=== PATIENT | male | born 1985 | race Caucasian/White ===

== ENCOUNTER 2024-08-20 16:59 | Inpatient (IN) | payer OTHER, SELFPAY ==
[2024-08-20 12:59] VITALS: BP 139/92
[2024-08-20] MEDS: TYLENOL 1000 MG PO (13:29)
[2024-08-20] MEDS: TORADOL 30 MG IV (13:30)
--- NOTE | 2024-08-20 13:41 | ED.GENMED ---
History of Present Illness
General
Chief Complaint: Swelling
Source: patient
Exam Limitations: none
Time Seen by Provider: 08/20/24 13:08
Nursing documentation reviewed up to this point in time: agreed with
History of Present Illness
History of Present Illness:
39-year-old male past medical history of diabetes previous drug presenting to the emergency department today with concerns of left-sided neck swelling over the past 4 days. Initially it seemed to have some swelling to the right side of the neck was
given amoxicillin and has been taking this twice daily over the past 3 days but has had no improvement now the swelling to the left side claims it is some trouble hearing out of the left ear. He has no swelling mainly to the neck no trouble
swallowing or breathing thinks he may have had a fever but did not take his temperature. Denies having similar symptoms in the past no trauma. No numbness weakness nausea vomiting.
Review of Systems
Review of Systems
Allergies reviewed?: Yes
All Other Systems: ROS reviewed and negative except as documented in HPI and ROS
Phy Exam
Physical Exam
Physical Exam:
GENERAL: Alert , in no apparent distress
EYE: pupils equal and reactive
NECK: Left lateral neck redness swelling tenderness palpation just below the ear spanning roughly 6 to 7 cm in width. No tenderness to the midline of the posterior neck no involvement of the trachea or midline of the anterior neck Supple, no
significant adenopathy.
ENT: o/p clr, mmm.
CARDIAC: Regular rate and rhythm .
LUNGS: Clear breath sounds bilaterally, no acute respiratory distress, no wheezes/rales/rhonchi
ABDOMEN: Soft, without focal tenderness, no r/g, no cvat
NEUROLOGICAL: Alert and oriented, no focal neuro deficits
SKIN: Warm and dry, skin intact.
MUSCULOSKELETAL: No edema, well perfused.
PSYCH: Normal and appropriate interaction.
Course
Orders/Labs/Results
Orders:
Orders
08/20/24 13:16
CT Neck With Iv Contrast Urgent
Comment:
Reason For Exam: left neck swelling pain x3 days, febrile
Acetaminophen [Tylenol] 1,000 mg PO NOW STA
Ketorolac [Toradol] 30 mg IV NOW STA
08/20/24 13:30
CBC/With Diff [Complete Blood Count/With Diff] Urgent
CMP [Comprehensive Metabolic Panel] Urgent
Lactic Acid Urgent
Abnormal Lab Results
08/20/24
13:30
RBC 4.31 L 10^6/uL
(4.70-6.10)
Hgb 12.8 L g/dL
(13.0-18.0)
Hct 35.9 L %
(39.0-52.0)
Carbon Dioxide 33 H mmol/L
(22-30)
BUN 7 L mg/dl
(9-20)
Creatinine 0.6 L mg/dL
(0.7-1.3)
Glucose 168 H mg/dl
(70-99)
AST 73 H U/L
(17-59)
ALT 72 H U/L
(0-50)
08/20/24 13:30
08/20/24 13:30
Vital Signs
Initial and Last Documented VS:
Initial Vital Signs
Temp Pulse Resp BP Pulse Ox
100.6 F H 67 18 139/92 100
08/20/24 12:59 08/20/24 12:59 08/20/24 12:59 08/20/24 12:59 08/20/24 12:59
Last Documented Vital Signs
Temp Pulse Resp BP Pulse Ox
100.6 F H 85 18 138/93 100
08/20/24 12:59 08/20/24 14:41 08/20/24 14:41 08/20/24 14:41 08/20/24 14:41
MDM/Problems Addressed
MDM/Problems Addressed:
39-year-old male presenting to the emergency department today with concerns of swelling to the left side of the neck over the past 4 days there is initially some swelling on the right side he started on amoxicillin 3 days ago he has been taking this
as prescribed but has had no improvement. Upon arrival here he is febrile significantly tender to the left lateral neck. Contrast CT scan was ordered for further assessment with concerns of potential deep space infection. CBC is showing likely
cellulitis no signs of focal consolidation. Patient has been on antibiotics for a few days without any improvement plan to admit for IV antibiotics for further treatment. No airway compromise while here able to speak with normal phonation.
Initial fever seems to be improving while here. Patient additionally with incidental finding of thyroid nodule that he can have evaluated as an outpatient.
*Critical Care Note
Total Time (30-74mins, 75-104mins- exclusive of procedures): Not Applicable
ED Attending Note
-
Portions of this chart may have been created with voice recognition software.� Occasional wrong word or��sound alike� substitutions may have occurred due to the inherent limitations of voice recognition software.
Discharge Plan
Departure
Patient Disposition: Admit
Date of Disposition: 08/20/24
Time of Disposition: 16:09
Admit to: Med/Surg
Admit to doctor: Aroldo
Presentation/result/management discussed w/ accepting MD/DO: Hospitalist
Patient with high blood pressure during this ER visit?: No
Condition: Good
Covid-19: Not Applicable
Discharge Problem:
Cellulitis of neck
Referrals:
[facility] [Family Provider] -
Interventions
Interventions:
*Risk Screen - Suicide Last Done: 08/20/24 12:59
*General Assessment Last Done: 08/20/24 12:59
*Neglect/Abuse Screening Last Done: 08/20/24 12:59
ED- Cardiac Assessment Last Done: 08/20/24 14:10
ED- Pulmonary Assessment Last Done: 08/20/24 14:10
ED-Skin Assessment Last Done: 08/20/24 14:10
Discharge Date and Time
Print Language: OMANI
[2024-08-20 14:14] LABS: % Basophils 0.7 % (0-2); % Eosinophils 1.4 % (0-6); % Immature Granulocytes 0.3 % (0-0.5); % Lymphocytes 27.1 % (20.5-51.1); % Neutrophils 62.5 % (42.2-75.2); Absolute Basophils 0.1 10^3/uL (0-0.2); Absolute Eosinophils 0.1 10^3/uL (0-0.7); Absolute Monocytes 0.6 10^3/uL (0.1-0.6); Absolute Neutrophils 4.5 10^3/uL (1.4-6.5); Hematocrit 35.9 % (39.0-52.0); Hemoglobin 12.8 g/dL (13.0-18.0); Mean Corp Hgb Conc. 35.7 g/dL (33.0-37.0); Mean Corpuscular Hgb 29.7 pg (27.0-31.0); Mean Corpuscular Volume 83.3 fL (80.0-94.0); Mean Platelet Volume 9.8 fL (7.4-10.4); Nucleated Red Blood Cells % 0 % (-); Platelet Count 260 10^3/uL (130-400); Red Blood Cell Count 4.31 10^6/uL (4.70-6.10); Red Cell Dist. Width 12.2 % (11.5-14.5); White Blood Cell Count 7.2 10^3/uL (4.8-10.8)
[2024-08-20 14:31] LABS: Lactic Acid 1.1 mmol/L (0.7-2.0)
[2024-08-20 14:33] LABS: ALT (SGPT) 72 U/L (0-50); AST (SGOT) 73 U/L (17-59); Albumin 4.5 g/dl (3.5-5.0); Alkaline Phosphatase 57 U/L (38-126); Blood Urea Nitrogen 7 mg/dl (9-20); Calcium 9.7 mg/dl (8.4-10.2); Carbon Dioxide 33 mmol/L (22-30); Chloride 99 mmol/L (98-107); Glucose 168 mg/dl (70-99); Potassium 4.8 mmol/L (3.5-5.1); Sodium 140 mmol/L (135-145); Total Bilirubin 0.7 mg/dl (0.2-1.3); Total Protein 7.3 g/dl (6.3-8.2); eGFR > 60.00
[2024-08-20 14:41] VITALS: BP 138/93
--- NOTE | 2024-08-20 16:45 | HPS.HSE ---
Family Physician
-
Family Physician: Facility [facility]
Chief Complaint
-
neck pain
History of Present Illness
39-year-old male presenting from [facility] past medical history of diabetes, prior IV drug use, psychiatric history, presenting with left-sided neck swelling for the past 4 days presenting to the emergency room with left-sided neck swelling for the
past 4 days.
He initially had swelling of his right neck 2 weeks ago associated with hearing impairment in the right ear and bleeding from the right ear and was treated with amoxicillin with improvement. He states that the swelling of his right neck has
improved he still has some muffled hearing on that side.
4 days ago he developed left neck swelling associated muffled hearing in his left ear. He has pain when he swallows. Denies any trouble breathing. He thinks he may have had a fever.
Used IV drugs many years ago. He used marijuana 2 months ago before he was imprisoned. Denies smoking or alcohol use.
Medical History
Past Medical History
Past Medical History: Reports Other (diabetes, prior IV drug use, psychiatric history,)
Past Surgical History: Reports None
Social History
Tobacco: Non-smoker
Alcohol: None
Drug: Marijuana
Family History
Family History: Not pertinent
Allergies / Home Medications
Allergies reflects when Allergies were last updated in [facility].
Home Medications with original date entered in [facility]
Allergy/Medication List:
Allergies
Allergy/AdvReac Type Severity Reaction Status Date / Time
No Known Allergies Allergy Unverified 08/20/24 12:59
Home Medications
amoxicillin 500 mg capsule 500 mg PO TID 08/20/24
aspirin 81 mg tablet,delayed release 81 mg PO DAILY 08/20/24
buprenorphine HCl 8 mg sublingual tablet 16 mg sublingual DAILY 08/20/24
buspirone 10 mg tablet 10 mg PO TID 08/20/24
hydroxyzine pamoate 50 mg capsule 50 mg PO HS 10/08/24
insulin glargine 100 unit/mL subcutaneous solution (Lantus U-100 Insulin) 14 unit SC DAILY@2100 08/20/24
metformin 500 mg tablet 500 mg PO BID@0600,1700 08/20/24
quetiapine 50 mg tablet 50 mg PO BID 08/20/24
Review of Systems
-
History Source: Patient
A 12 point ROS was completed and negative except as noted: Yes
Constitutional: Reports No Symptoms
EENT: Reports Other (-Examination of left ear just showing cerumen without evidence of otitis media -Examination of right ear shows some bloody residue, unclear if he had otitis externa)
Respiratory: Reports No Symptoms
Cardiac: Reports No Symptoms
Abdomen/GI: Reports No Symptoms
: Reports No Symptoms
Musculoskeletal: Reports No Symptoms
Skin: Reports No Symptoms
Neurological: Reports No Symptoms
Endocrine: Reports No Symptoms
Hematologic/Lymphatic: Reports No Symptoms
Psych: Reports No Symptoms
Physical Exam
Vital Signs
Vital Signs
Temp Pulse Resp BP Pulse Ox
100.6 F H 85 18 138/93 100
08/20/24 12:59 08/20/24 14:41 08/20/24 14:41 08/20/24 14:41 08/20/24 14:41
Physical Exam
General: Well Developed, Well Nourished and No Apparent Distress
HEENT: Other (-Examination of left ear just showing cerumen without evidence of otitis media -Examination of right ear shows some bloody residue, unclear if he had otitis externa)
Respiratory: Clear
Cardiac: S1/S2 and Regular Rhythm; No Murmur or Rub
GI: Soft, Non Tender, Non Distended and Normal Bowel Sounds; No Organomegaly
Rectal: Deferred by Provider
Musculoskeletal: No Clubbing, No Cyanosis and No Edema
Skin: No Rash
Neuro: Nonfocal/grossly intact
Laboratory Results
-
08/20/24 13:30
08/20/24 13:30
Laboratory Results
Lactic Acid 1.1 mmol/L (0.7-2.0) 08/20/24 13:30
Total Bilirubin 0.7 mg/dl (0.2-1.3) 08/20/24 13:30
AST 73 U/L (17-59) H 08/20/24 13:30
ALT 72 U/L (0-50) H 08/20/24 13:30
Alkaline Phosphatase 57 U/L (38-126) 08/20/24 13:30
Data Reviewed
-
Lab Data: Labs Reviewed by me
Old Records: Reviewed
Impression/Plan
-
IMPRESSION:
PLAN:
# Posterior neck cellulitis/possible tonsillitis
-Fever 100.6
-Examination of left ear just showing cerumen without evidence of otitis media
-Examination of right ear shows some bloody residue, unclear if he had otitis externa
-CT neck shows cellulitis extending from the periauricular soft tissues to the left supraclavicular soft tissues involving predominantly the subcutaneous fat associated with thickening of the superficial investing fascia, faucial tonsils enlarged
suggesting possible tonsillitis
-Blood cultures pending
-Zosyn
-May need ENT evaluation if no improvement with antibiotic
# Known thyroid masses
-Outpatient thyroid ultrasound
# Transaminitis
-Continue to monitor
Psychiatric history
-Continue Seroquel, BuSpar, Vistaril
History of opiate use
Recent marijuana use
Type 2 diabetes
-Continue metformin
-Continue Lantus 14 units
Full code
DVT prophylaxis�heparin
Regular diet
[2024-08-20 17:30] VITALS: BMI 29.2
[2024-08-20] MEDS: VANCOCIN 540 MG IV (17:58)
[2024-08-20 18:20] VITALS: BP 140/87
--- NOTE | 2024-08-20 18:56 | PTCARENOTE ---
pt arrives at 1815 in [facility] custody. walked to hospital bed independently. Codio running from ED. pt aaox3/VSS. admission completed at this time. report provided to Ursula [employer]LA[employer] shift supervisor RN.
[2024-08-20 20:31] LABS: Glucose - Point of Care 199 mg/dl (70-99)
[2024-08-20] MEDS: ZOSYN 50 IV (20:42)
[2024-08-20] MEDS: GLUCOPHAGE 500 MG PO (20:43)
[2024-08-20] MEDS: SEROQUEL 50 MG PO (20:43)
[2024-08-20] MEDS: HEPARIN 5000 UNITS SC (20:43)
[2024-08-20] MEDS: FLUSH (NSS) 2 FLUSH IV ×2 (20:44→21:48)
--- NOTE | 2024-08-20 20:45 | PTCARENOTE ---
Pt c/o 05/22 pain throughout L side of neck, TOOLSMITH made aware, new order provided, see MAR.
[2024-08-20] MEDS: LANTUS 0.14 UNITS SC (21:47)
[2024-08-20] MEDS: TORADOL 15 MG IV (21:47)
[2024-08-20] MEDS: BUSPAR 10 MG PO (21:48)
[2024-08-20] MEDS: ATARAX 50 MG PO (21:48)
[2024-08-20 23:15] VITALS: BP 103/71
[2024-08-21] MEDS: ZOSYN 50 IV ×4 (02:28→20:01)
[2024-08-21 06:00] VITALS: BMI 30.7
[2024-08-21 07:00] VITALS: BP 121/78
--- NOTE | 2024-08-21 07:20 | W.PN.HOSP.TC ---
Addendum entered and electronically signed by Farnaz Malik MD 08/21/24 19:15:
I saw and evaluated the patient independently. I reviewed the resident�s note and agree with findings and plan as documented by Dr. Hyatt.
GENERAL: well developed, well nourished, male in some distress
HEENT: NC/AT--left ear with cerumen, painful nodule to left neck with warmth and pain down left neck --no obvious redness or streaking noted--tonsils appear normal to my exam
HEART: regular rate and rhythm, +S1, +S2
LUNGS : clear to auscultation bilaterally
ABDOM: soft, nontender, nondistended, + bowel sounds
EXT: no cyanosis, clubbing, or edema--left painful nodule left anterior thigh with LAD in groin noted
NEUROLOGIC: grossly intact
Posterior neck cellulitis--had right sided ~1 week ago resolved with amoxicillin--CT scan on admission reviewed c/w cellulitis--await blood cultures--agree with zosyn--consider vanco to cover for MRSA--await ID input, await ENT input
Known thyroid masses--Outpatient thyroid ultrasound
Transaminitis--Continue to monitor
Psychiatric history--Continue Seroquel, BuSpar, Vistaril
History of opiate use/Recent marijuana use-- no signs of withdrawal--pt states he has not used drugs since incarceration
Type 2 diabetes--Continue metformin--Continue Lantus 14 units
Full code
DVT prophylaxis�heparin
Original Note:
Today's Communication/Plan
-
.
Assessment / Plan
Assessment / Plan
IMPRESSION/PLAN:
# Posterior neck cellulitis
-Fever 100.6 on presentation
-CT neck shows cellulitis extending from the periauricular soft tissues to the left supraclavicular soft tissues involving predominantly the subcutaneous fat associated with thickening of the superficial investing fascia, faucial tonsils enlarged
suggesting possible tonsillitis
-Blood cultures pending
-Initiated on Zosyn
-ENT consult to evaluate due to difficulty hearing out of left ear. although left ear obscured with wax.
-ID consult
-Pain medication with Low-dose Tylenol 325mg, Toradol IV.
# Known thyroid masses
-Outpatient thyroid ultrasound
# Transaminitis
-Elevated AST/ALT level on presentation
-Now trending now
-Monitor LFTS
Psychiatric history
-Continue Seroquel, BuSpar, Vistaril
#History of opiate use
#Type 2 diabetes
-Continue metformin
-Continue Home Lantus 14 units
Full code
DVT prophylaxis�heparin
Regular diet
Anticipated Discharge: > 48 hours
Subjective/Interval History
-
Patient seen and examined at bedside. He complains of moderate neck pain. Reports dysphagia resolved. Tolerated breakfast. He reports difficulty with hearing out of left ear.
Objective Data
-
Labs:
Laboratory Results
08/21/24
06:00
WBC Pending
Hgb Pending
Hct Pending
Plt Count Pending
Sodium Pending
Potassium Pending
Chloride Pending
Carbon Dioxide Pending
BUN Pending
Creatinine Pending
Glucose Pending
Calcium Pending
Total Bilirubin Pending
AST Pending
ALT Pending
Alkaline Phosphatase Pending
Vital Signs:
Vital Signs
Temp Pulse Resp BP Pulse Ox
97.9 F 68 16 103/71 97
08/20/24 23:15 08/20/24 23:15 08/20/24 23:15 08/20/24 23:15 08/20/24 23:15
I&O
08/20/24 08/21/24 08/22/24
06:59 06:59 06:59
Intake Total 580 / 580
Balance 580 / 580
Review of Systems
-
All other systems: Reviewed and negative (Except as documented)
Physical Exam
-
General: Well Developed and Pain (Mild right-sided neck pain)
HEENT: Other (left ear obscured with wax)
Respiratory: Clear to Auscultation
Cardiac: Regular Rhythm and S1/S2
GI: Soft, Nontender, Nondistended and Normal Bowel Sounds
Genito-urinary: Other (swollen lymph node right inguinal area. )
Musculoskeletal: No Edema
[2024-08-21 07:54] LABS: Glucose - Point of Care 106 mg/dl (70-99)
[2024-08-21] MEDS: BUSPAR 10 MG PO ×3 (07:54→23:04)
[2024-08-21] MEDS: SUBUTEX 16 MG SL (07:54)
[2024-08-21] MEDS: ASPIR LOW (ENTERIC COATED) 81 MG PO (07:55)
[2024-08-21] MEDS: SEROQUEL 50 MG PO ×2 (07:55→20:10)
[2024-08-21] MEDS: NOVOLOG FLEXPEN-LOW RESISTANCE SC ×2 (07:55→12:05)
[2024-08-21] MEDS: GLUCOPHAGE 500 MG PO ×2 (07:55→16:00)
[2024-08-21] MEDS: HEPARIN 5000 UNITS SC ×2 (07:55→20:11)
[2024-08-21 09:04] LABS: % Basophils 0.6 % (0-2); % Eosinophils 2.2 % (0-6); % Immature Granulocytes 0.4 % (0-0.5); % Lymphocytes 34.1 % (20.5-51.1); % Monocytes 9.7 % (1.7-9.3); Absolute Eosinophils 0.1 10^3/uL (0-0.7); Absolute Lymphocytes 1.7 10^3/uL (1.2-3.4); Absolute Monocytes 0.5 10^3/uL (0.1-0.6); Absolute Neutrophils 2.7 10^3/uL (1.4-6.5); Hemoglobin 12.1 g/dL (13.0-18.0); Mean Corp Hgb Conc. 35.6 g/dL (33.0-37.0); Mean Corpuscular Hgb 30.3 pg (27.0-31.0); Mean Corpuscular Volume 85.2 fL (80.0-94.0); Mean Platelet Volume 9.7 fL (7.4-10.4); Nucleated Red Blood Cells % 0 % (-); Platelet Count 216 10^3/uL (130-400); Red Blood Cell Count 3.99 10^6/uL (4.70-6.10); Red Cell Dist. Width 12.1 % (11.5-14.5); White Blood Cell Count 5.1 10^3/uL (4.8-10.8)
[2024-08-21 10:13] LABS: ALT (SGPT) 56 U/L (0-50); AST (SGOT) 52 U/L (17-59); Albumin 3.8 g/dl (3.5-5.0); Alkaline Phosphatase 53 U/L (38-126); Blood Urea Nitrogen 10 mg/dl (9-20); Calcium 8.8 mg/dl (8.4-10.2); Carbon Dioxide 25 mmol/L (22-30); Chloride 104 mmol/L (98-107); Estimated Creatinine Clearance > 125 ml/min; Glucose 111 mg/dl (70-99); Sodium 142 mmol/L (135-145); Total Bilirubin 0.6 mg/dl (0.2-1.3); Total Protein 6.3 g/dl (6.3-8.2); eGFR > 60.00
[2024-08-21] MEDS: TYLENOL 325 MG PO (10:30)
[2024-08-21] MEDS: TORADOL 15 MG IV ×2 (11:20→20:10)
[2024-08-21 11:55] LABS: Glucose - Point of Care 179 mg/dl (70-99)
--- NOTE | 2024-08-21 13:08 | CM ---
Patient seen at bedside with physician and resident. Patient is a resident at [facility], guards present at bedside. CM will call to [facility]. CM will continue to follow for discharge planning needs.
Plan; return to [facility]
[2024-08-21 15:00] VITALS: BP 102/73
--- NOTE | 2024-08-21 16:03 | CON.MD ---
Consultation - Medical
-
Patient seen and evaluated at the bedside.
Full consult dictated.
A/E-49-lvox-old male with neck cellulitis and cerumen in bilateral ears.
-Patient with clogged ears bilaterally, complains of muffled hearing.
-Cerumen noted in ears, left greater than right.
-Ears otherwise clear on CT scan, no evidence of middle ear or mastoid disease.
-Start Debrox drops, should soften wax and then patient can wash out while showering.
-Evidence of furuncle at left posterior neck, tender with moderate erythema, consistent with cellulitis.
-No other significant swelling throughout head and neck.
-Pharyngeal exam within normal limits, no evidence of tonsillitis.
-Continue antibiotics as per medical team.
--- NOTE | 2024-08-21 16:28 | CON.ID ---
Consultation
-
Date/Time Consultation Requested: 08/21/2024 0956
Date/Time Consultation Performed: 08/21/2024 1629
Requesting Provider: Dr. Hyatt
Performing Provider: Dr. Ayala
Reason for Consultation: Left neck cellulitis
Chief Complaint / Past History
History of Present Illness
Rey Schwartz is a 39-year-old man being evaluated for left neck cellulitis. History is obtained from chart review, along with interview.
The patient has an underlying history of diabetes mellitus which was diagnosed ever since he was incarcerated. He currently is on insulin. A1c is = 8.0.
He reports that he was in his usual state of health until probably 2 weeks ago when he developed some swelling and discomfort of his right neck area. He was prescribed amoxicillin, with noted improvement in the cutaneous discomfort up to about 5
days ago when he developed a nodular area on his left neck. He notes spreading pain over the past several days. He also admits to some swelling in his left groin area which began earlier today. He denies any recent fevers or chills. He has no
known history of MRSA. He notes that at present it is difficult to turn his head to a degree, and the pain has spread outward from the nodular area, now up to his occipital area, and down towards his shoulder area. He has no shoulder pain, though.
He denies any areas of drainage. He has been on amoxicillin without improvement. No other nodules noted on the body.
Past History
Additional Past Medical History:
DM
Psychiatric history
Past Surgical History: None
Allergy History:
No Known Allergies Allergy (Unverified 08/20/24 12:59)
Medications Reviewed: Yes
Current Antibiotics:
Zosyn
Social History
Tobacco: Former Smoker
Alcohol: None
Drug: Marijuana and Narcotics (history of)
Personal: Single
Living: [facility]
Employment: Not Employed
Family History
Family History: Not Pertinent
Review of Systems
Review of Systems
General: Negative Fever or Chills
HEENT: Negative Headache
Respiratory: Negative Cough
Musculoskeletal: Other (No deep neck pain); Negative Joint Pain or Joint Swelling
Vital Signs
Temp Pulse Resp BP Pulse Ox
97.9 F 71 16 121/78 99
08/21/24 07:00 08/21/24 07:00 08/21/24 07:00 08/21/24 07:00 08/21/24 07:00
Physical Exam
Physical Exam
Constitutional: No Acute Distress, Well Developed, Comfortable and Non-toxic
Head: Normocephalic
Eyes: Pupils Equal, Pupils Round, No Conjunctival Hemorrhage and Sclera Anicteric
Oral: No Thrush and No Ulcers
Cardiovascular: Regular Rate and S1/S2; Negative S3/S4
Pulmonary: Clear; Negative Wheezes, Rales or Rhonchi
Gastrointestinal: Soft, Non Tender and Non Distended
Extremities: Negative Edema, Cyanosis or Erythema
Musculoskeletal: Negative Joint Swelling or Joint Effusion
Skin: Other (Base of right neck with nodule with significant tenderness to touch. Tenderness extends out to some degree of neck and down towards shoulder. No significant erythema.)
Neurological: Awake and Alert
Psychological: Calm
Lab / Diagnostic Study Results
08/21/24 08:49
08/21/24 08:49
Abs Immat Gran (auto) 0.0 10^3/uL (0-0.05) 08/21/24 08:49
Absolute Neuts (auto) 2.7 10^3/uL (1.4-6.5) 08/21/24 08:49
Absolute Lymphs (auto) 1.7 10^3/uL (1.2-3.4) 08/21/24 08:49
Absolute Monos (auto) 0.5 10^3/uL (0.1-0.6) 08/21/24 08:49
Absolute Basos (auto) 0.0 10^3/uL (0-0.2) 08/21/24 08:49
Immature Gran % 0.4 % (0-0.5) 08/21/24 08:49
Neutrophils % 53.0 % (42.2-75.2) 08/21/24 08:49
Lymphocytes % 34.1 % (20.5-51.1) 08/21/24 08:49
Monocytes % 9.7 % (1.7-9.3) H 08/21/24 08:49
Eosinophils % 2.2 % (0-6) 08/21/24 08:49
Basophils % 0.6 % (0-2) 08/21/24 08:49
Lactic Acid 1.1 mmol/L (0.7-2.0) 08/20/24 13:30
Microbiology Results
Micro:
08/20/24 20:35 MRSA Screen - Pending
Nose
08/20/24 16:37 Blood Culture - Pending
Blood/Venous
08/20/24 16:37 Blood Culture - Pending
Blood/Venous
Imaging:
08/20/2024 CT neck with IV contrast: Left posterior neck cellulitis noted with findings extending from the periauricular soft tissues to the left supraclavicular soft tissues involving predominantly the subcutaneous fat associated with thickening of
the superficial investing fascia, mild inflammatory changes in the posterior triangle of the left neck and mild/borderline adenopathy.
Assessment / Plan
Right posterior neck cellulitis
Possible evolving collection/abscess
Hx DM (uncontrolled; A1c = 8.0)
Recommendations:
Continue with Zosyn for the present. Will continue vancomycin for empiric MRSA coverage.
K-pad to the left neck area.
Monitor white count and temperature curve.
Follow-up pending blood cultures
Follow for clinical improvement.
--- NOTE | 2024-08-21 17:03 | PHA.VAN.IN ---
Assessment
- Assessment
Renal Function: Appears similar to baseline
Concomitant Antimicrobials: ZOSYN
- Previous Dosing Experience
Previous Regimen: 2GM SINGLE DOSE 08/20/24
AUC Dosing Plan
- Dosing Variables
Dosing Weight (kg): 102.6
Dosing CrCl (ml/min): 100
Vd coefficient (L/kg): 0.6
- Empiric Dosing
Initial / Loading Dose: 2GM
Maintenance Regimen: 1250MG IV Q12H
Estimated AUC (mcg*h/mL): 495
Estimated Peak (mcg*h/mL): 31.3
Estimated Trough (mcg/ml): 12.5
Estimated Half Life (H): 7.9
Pharmacokinetics Vancomycin I
- -
Patient Age: 39
Patient Sex: Male
Vancomycin Day #: 1
Indication: Skin And Soft Tissue (NECK CELLULITIS)
Requesting Provider: HOLLEY
Height / Weight:
Height 6 ft
Actual Weight 102.625 kg
Pertinent Past Medical History: DM
- Vital Signs / Lab Results
Temp Pulse Resp BP Pulse Ox
98.2 F 74 16 102/73 97
08/21/24 15:00 08/21/24 15:00 08/21/24 15:00 08/21/24 15:00 08/21/24 15:00
Lab Results - Hematology
08/20/24 08/21/24
13:30 08:49
WBC 7.2 5.1
Lab Results - Chemistry
08/20/24 08/21/24
13:30 08:49
BUN 7 L 10
Creatinine 0.6 L 0.7
Estimated Creat Clear > 125
Albumin 4.5 3.8
08/20/24
13:30
Lactic Acid 1.1
Microbiology Results
08/20/24 16:37 Blood Culture - Preliminary
Blood/Venous No Growth in 24 hours- Final report to follow
08/20/24 16:37 Blood Culture - Preliminary
Blood/Venous No Growth in 24 hours- Final report to follow
[2024-08-21 17:16] LABS: Glucose - Point of Care 241 mg/dl (70-99)
[2024-08-21] MEDS: NOVOLOG FLEXPEN-LOW RESISTANCE 2 UNITS SC (17:38)
[2024-08-21] MEDS: VANCOCIN 540 MG IV (17:39)
[2024-08-21] MEDS: FLUSH (NSS) 2 FLUSH IV (20:01)
[2024-08-21] MEDS: DEBROX EAR DROPS 1 DROP OTIC (20:11)
[2024-08-21 23:00] VITALS: BP 127/79
[2024-08-21] MEDS: ATARAX 50 MG PO (23:04)
[2024-08-21] MEDS: LANTUS 0.14 UNITS SC (23:05)
[2024-08-21 23:08] LABS: Glucose - Point of Care 189 mg/dl (70-99)
[2024-08-22] MEDS: ZOSYN 50 IV ×3 (02:29→13:48)
[2024-08-22] MEDS: VANCOCIN 275 MG IV (05:21)
[2024-08-22] MEDS: SUBUTEX 16 MG SL (07:16)
[2024-08-22] MEDS: SEROQUEL 50 MG PO ×2 (07:16→20:21)
[2024-08-22] MEDS: ASPIR LOW (ENTERIC COATED) 81 MG PO (07:16)
--- NOTE | 2024-08-22 07:16 | W.PN.HOSP.TC ---
Addendum entered and electronically signed by Farnaz Malik MD 08/22/24 19:05:
I saw and evaluated the patient independently. I reviewed the resident�s note and agree with findings and plan as documented by Dr. Hyatt.
GENERAL: well developed, well nourished, male in no apparent distress
HEENT: NC/AT--left ear with cerumen, painful left neck with warmth and pain down left neck --no obvious redness or streaking noted--lump improved
HEART: regular rate and rhythm, +S1, +S2
LUNGS : clear to auscultation bilaterally
ABDOM: soft, nontender, nondistended, + bowel sounds
EXT: no cyanosis, clubbing, or edema
NEUROLOGIC: grossly intact
Posterior neck cellulitis may be related to uncontrolled DM--had right sided ~1 week ago resolved with amoxicillin--CT scan on admission reviewed c/w cellulitis--blood cultures negative, MRSA screen positive--cont vanco--apprec ID/ENT input
Known thyroid masses--Outpatient thyroid ultrasound
Transaminitis--Continue to monitor
Psychiatric history--Continue Seroquel, BuSpar, Vistaril
History of opiate use/Recent marijuana use-- no signs of withdrawal--pt states he has not used drugs since incarceration
Type 2 diabetes--Continue metformin--Continue Lantus 14 units--HGB A1C 8
Full code
DVT prophylaxis�heparin
Original Note:
Today's Communication/Plan
-
.
Assessment / Plan
Assessment / Plan
IMPRESSION/PLAN:
# Posterior neck cellulitis
-Fever 100.6 on presentation
-CT neck shows cellulitis extending from the periauricular soft tissues to the left supraclavicular soft tissues involving predominantly the subcutaneous fat associated with thickening of the superficial investing fascia, faucial tonsils enlarged
suggesting possible tonsillitis
-Blood cultures pending, preliminary result negative
-Initially initiated on Zosyn
-ID input appreciated. Will continue Zosyn plus vancomycin for empiric MRSA coverage. MRSA screen pending
-ENT consulted.input appreciated. Patient with cerumen in ears bilaterally left> right. Start Debrox drops
-Pain medication with Low-dose Tylenol 325mg, Toradol IV.
# Known thyroid masses
-Outpatient thyroid ultrasound
# Transaminitis
-Elevated AST/ALT level on presentation
-Now trending now
-Monitor LFTS
Psychiatric history
-Continue Seroquel, BuSpar, Vistaril
#History of opiate use
#Type 2 diabetes
-Continue metformin
-Continue Home Lantus 14 units
Full code
DVT prophylaxis�heparin
Regular diet
Anticipated Discharge: Within 24 hours
Subjective/Interval History
-
Date of Service: August 22, 2024
Objective Data
-
Labs:
Laboratory Results
08/22/24
06:00
WBC Pending
Hgb Pending
Hct Pending
Plt Count Pending
Sodium Pending
Potassium Pending
Chloride Pending
Carbon Dioxide Pending
BUN Pending
Creatinine Pending
Glucose Pending
Calcium Pending
Total Bilirubin Pending
AST Pending
ALT Pending
Alkaline Phosphatase Pending
Vital Signs:
Vital Signs
Temp Pulse Resp BP Pulse Ox
98 F 72 18 127/79 98
08/21/24 23:00 08/21/24 23:00 08/21/24 23:00 08/21/24 23:00 08/21/24 23:00
I&O
08/21/24 08/22/24 08/23/24
06:59 06:59 06:59
Intake Total 580 / 580 1120 / 1120
Balance 580 / 580 1120 / 1120
Review of Systems
-
All other systems: Reviewed and negative (Except as documented)
Physical Exam
-
General: No Apparent Distress
HEENT: Other (left ear obscured with wax)
Respiratory: Clear to Auscultation
Cardiac: S1/S2
GI: Soft, Nontender and Nondistended
Musculoskeletal: No Edema
Neuro: AO x 3
Hematologic / Lymphatic: Other (Tender, swollen lymph node right inguinal area.)
[2024-08-22] MEDS: BUSPAR 10 MG PO ×3 (07:17→21:30)
[2024-08-22] MEDS: GLUCOPHAGE 500 MG PO ×2 (07:17→16:06)
[2024-08-22] MEDS: HEPARIN 5000 UNITS SC ×2 (07:17→20:21)
[2024-08-22] MEDS: NOVOLOG FLEXPEN-LOW RESISTANCE SC (07:17)
[2024-08-22] MEDS: DEBROX EAR DROPS 1 DROP OTIC ×2 (07:18→20:22)
[2024-08-22 08:47] VITALS: BP 119/80
[2024-08-22 09:03] LABS: Glucose - Point of Care 201 mg/dl (70-99)
--- NOTE | 2024-08-22 10:20 | PHA.VAN.FU ---
Vancomycin Assessment / Plan
- Assessment
Renal Function: Stable
Concomitant Antimicrobials: piperacillin/tazobactam
- Dosing Plan
Adjust Regimen to: Vanc 1500mg Q12H starting at 1800
New Regimen Predicts: AUC (485), Peak (33.4), Trough (10.7)
- Monitoring Plan
No level(s) ordered at this time: consider levels in next few days
- Follow Up
Pharmacy will continue to follow.
Vancomycin Follow UP
- -
Patient Age: 39
Patient Sex: Male
Vancomycin Day #: 2
Indication: Skin And Soft Tissue
Requesting Provider: Dr. Ayala
Pertinent Antimicrobial Allergies:
NKDA
Height / Weight:
Height 6 ft
Actual Weight 102.625 kg
Pertinent Past Medical History: BMI ~31, DM 2
- Vital Signs / Lab Results
Temp Pulse Resp BP Pulse Ox
98.3 F 68 16 119/80 100
08/22/24 08:47 08/22/24 08:47 08/22/24 08:47 08/22/24 08:47 08/22/24 08:47
Lab Results - Hematology
08/20/24 08/21/24
13:30 08:49
WBC 7.2 5.1
Lab Results - Chemistry
08/20/24 08/21/24
13:30 08:49
BUN 7 L 10
Creatinine 0.6 L 0.7
Estimated Creat Clear > 125
Albumin 4.5 3.8
08/20/24
13:30
Lactic Acid 1.1
Microbiology Results
08/20/24 20:35 MRSA Screen - Final
Nose Staph aureus MRSA
08/20/24 16:37 Blood Culture - Preliminary
Blood/Venous No Growth in 24 hours- Final report to follow
08/20/24 16:37 Blood Culture - Preliminary
Blood/Venous No Growth in 24 hours- Final report to follow
[2024-08-22 11:27] LABS: Hematocrit 34.6 % (39.0-52.0); Hemoglobin 12.2 g/dL (13.0-18.0); Mean Corp Hgb Conc. 35.3 g/dL (33.0-37.0); Mean Corpuscular Hgb 29.5 pg (27.0-31.0); Mean Corpuscular Volume 83.8 fL (80.0-94.0); Mean Platelet Volume 9.6 fL (7.4-10.4); Platelet Count 229 10^3/uL (130-400); Red Blood Cell Count 4.13 10^6/uL (4.70-6.10); Red Cell Dist. Width 12.4 % (11.5-14.5); White Blood Cell Count 3.8 10^3/uL (4.8-10.8)
[2024-08-22 11:43] LABS: Glucose - Point of Care 207 mg/dl (70-99)
[2024-08-22] MEDS: NOVOLOG FLEXPEN-LOW RESISTANCE 2 UNITS SC ×2 (11:51→17:12)
[2024-08-22 11:55] LABS: ALT (SGPT) 54 U/L (0-50); AST (SGOT) 51 U/L (17-59); Albumin 3.7 g/dl (3.5-5.0); Alkaline Phosphatase 50 U/L (38-126); Blood Urea Nitrogen 10 mg/dl (9-20); Calcium 9.3 mg/dl (8.4-10.2); Carbon Dioxide 31 mmol/L (22-30); Chloride 105 mmol/L (98-107); Estimated Creatinine Clearance > 125 ml/min; Glucose 148 mg/dl (70-99); Magnesium 1.8 mg/dl (1.6-2.3); Potassium 4.2 mmol/L (3.5-5.1); Sodium 142 mmol/L (135-145); Total Bilirubin 0.4 mg/dl (0.2-1.3); Total Protein 6.3 g/dl (6.3-8.2); eGFR > 60.00
[2024-08-22] MEDS: TORADOL 15 MG IV ×2 (11:58→20:21)
--- NOTE | 2024-08-22 12:57 | PN.CDI ---
CDI
- -
CDI:
Physician Documentation Request
Admit Date: 08/20/24 16:59
Dear Doctor King,
Please review the following and provide your response in the progress notes.
Clinical Indicators:
Pt admitted with Neck cellulitis
ID consult, ' Right posterior neck cellulitis Possible evolving collection/abscess Hx DM (uncontrolled; A1c = 8.0)...'
Please clarify the relationship between these conditions:
Yes, Neck Cellulitis ___ is related to/associated with/due to _uncontrolled DM__.
No, _Neck Cellulitis __ is not related to/associated with/due to _uncontrolled DM __ but it is due to ___. (Please specify)
Unable to determine
Use of terms such as suspected, likely, concern for, or probable (associated with a specific diagnosis that is being evaluated, monitored, or treated as if it exists) are acceptable and can be coded in the inpatient setting, when documented at the
time of discharge.
Thank you,
Birdie Browne RN
CDI Specialist
[facility]
Please use your independent medical judgment in providing your response.
--- NOTE | 2024-08-22 14:00 | CM ---
Patient for transfer back to Group Home when medically appropriate. CM will continue to follow for discharge planning needs.
Plan; return to retirement
--- NOTE | 2024-08-22 14:46 | W.PN.ID1 ---
Date of Service
Date of Service: August 22, 2024
Today's Communication
Continue vanco for today. Discontinue Zosyn.
Assessment / Plan
Right posterior neck cellulitis
Possible evolving collection/abscess
MRSA colonization
Hx DM (uncontrolled; A1c = 8.0)
Recommendations:
D/C further Zosyn. Will continue vancomycin for empiric MRSA coverage.
-If noted improvement over the next 24 to 48 hours, may be able to transition to oral regimen such as linezolid, Bactrim DS or doxycycline.
Continue K-pad to the left neck area.
Monitor white count and temperature curve.
Follow-up pending blood cultures
Follow for clinical improvement.
����������������������������������������������������������
Chief Complaint
-: Cellulitis
Subjective / Review of Systems
Patient seen and examined. Reports ongoing left cutaneous neck discomfort, and feels that it is somewhat spreading.
Review of Systems: No Fever
Vital Signs / Physical Exam
Vital Signs
Vital Signs
Temp Pulse Resp BP Pulse Ox
98.3 F 68 16 119/80 100
08/22/24 08:47 08/22/24 08:47 08/22/24 08:47 08/22/24 08:47 08/22/24 08:47
Physical Exam
Constitutional: No Acute Distress, Comfortable and Non-toxic
Eyes: No Conjunctival Hemorrhage and Sclera Anicteric
Cardiovascular: S1/S2; Negative S3/S4
Pulmonary: Non Labored
Gastrointestinal: Soft and Non Tender
Skin: Other (Left neck with minimal erythema, but tenderness to touch. No rash or vesicles noted. Single subcutaneous nodule (~1cm) palpated)
Neurological: Awake and Alert
Psychological: Calm
Objective Data
Lab Data
Lab Results
08/22/24 11:18
08/22/24 11:18
Estimated Creat Clear > 125 ml/min 08/22/24 11:18
Lactic Acid 1.1 mmol/L (0.7-2.0) 08/20/24 13:30
Total Bilirubin 0.4 mg/dl (0.2-1.3) 08/22/24 11:18
AST 51 U/L (17-59) 08/22/24 11:18
ALT 54 U/L (0-50) H 08/22/24 11:18
Alkaline Phosphatase 50 U/L (38-126) 08/22/24 11:18
Most recent labs reviewed.
Micro Results:
08/20/24 20:35 MRSA Screen - Final
Nose Staph aureus MRSA
08/20/24 16:37 Blood Culture - Preliminary
Blood/Venous No Growth in 24 hours- Final report to follow
08/20/24 16:37 Blood Culture - Preliminary
Blood/Venous No Growth in 24 hours- Final report to follow
Imaging:
08/20/2024 CT neck with IV contrast: Left posterior neck cellulitis noted with findings extending from the periauricular soft tissues to the left supraclavicular soft tissues involving predominantly the subcutaneous fat associated with thickening of
the superficial investing fascia, mild inflammatory changes in the posterior triangle of the left neck and mild/borderline adenopathy.
[2024-08-22 15:13] VITALS: BP 127/70
[2024-08-22 16:55] LABS: Glucose - Point of Care 231 mg/dl (70-99)
[2024-08-22] MEDS: VANCOCIN 300 ML IV (17:12)
[2024-08-22] MEDS: VANCOCIN 300 MG IV (17:12)
[2024-08-22 21:01] LABS: Glucose - Point of Care 146 mg/dl (70-99)
[2024-08-22] MEDS: TYLENOL 650 MG PO (21:29)
[2024-08-22] MEDS: LANTUS 0.14 UNITS SC (21:29)
[2024-08-22] MEDS: ATARAX 50 MG PO (21:30)
[2024-08-22 23:54] VITALS: BP 147/88
[2024-08-23] MEDS: VANCOCIN 300 MG IV ×2 (05:53→17:35)
[2024-08-23] MEDS: VANCOCIN 300 ML IV ×2 (05:53→17:35)
[2024-08-23 07:00] VITALS: BP 127/86
[2024-08-23 07:07] LABS: Hematocrit 31.6 % (39.0-52.0); Hemoglobin 11.4 g/dL (13.0-18.0); Mean Corp Hgb Conc. 36.1 g/dL (33.0-37.0); Mean Corpuscular Hgb 30.6 pg (27.0-31.0); Mean Corpuscular Volume 84.7 fL (80.0-94.0); Platelet Count 214 10^3/uL (130-400); Red Blood Cell Count 3.73 10^6/uL (4.70-6.10); Red Cell Dist. Width 12.2 % (11.5-14.5); White Blood Cell Count 3.9 10^3/uL (4.8-10.8)
--- NOTE | 2024-08-23 07:12 | W.PN.HOSP.TC ---
Addendum entered and electronically signed by Farnaz Malik MD 08/23/24 18:58:
I saw and evaluated the patient independently. I reviewed the resident�s note and agree with findings and plan as documented by Dr. Hyatt.
GENERAL: well developed, well nourished, male in no apparent distress
HEENT: NC/AT--left ear with cerumen, painful left neck with warmth and pain down left neck --no obvious redness or streaking noted-- improved
HEART: regular rate and rhythm, +S1, +S2
LUNGS : clear to auscultation bilaterally
ABDOM: soft, nontender, nondistended, + bowel sounds
EXT: no cyanosis, clubbing, or edema
NEUROLOGIC: grossly intact
Posterior neck cellulitis may be related to uncontrolled DM--had right sided ~1 week ago resolved with amoxicillin--CT scan on admission reviewed c/w cellulitis--blood cultures negative, MRSA screen positive--lloyd to genet per ID--apprec ID/ENT input
Known thyroid masses--Outpatient thyroid ultrasound
Transaminitis--Continue to monitor
Psychiatric history--Continue Seroquel, BuSpar, Vistaril
History of opiate use/Recent marijuana use-- no signs of withdrawal--pt states he has not used drugs since incarceration
Type 2 diabetes--Continue metformin--Continue Lantus 14 units--HGB A1C 8
Full code
DVT prophylaxis�heparin
d/c to [facility] Monday
Original Note:
Today's Communication/Plan
-
.
Assessment / Plan
Assessment / Plan
IMPRESSION/PLAN:
# Posterior neck cellulitis
-Fever 100.6 on presentation
-CT neck shows cellulitis extending from the periauricular soft tissues to the left supraclavicular soft tissues involving predominantly the subcutaneous fat associated with thickening of the superficial investing fascia, faucial tonsils enlarged
suggesting possible tonsillitis
-Blood cultures, preliminary result negative
-Initially initiated on Zosyn
-ID input appreciated. Will switch to vancomycin for empiric MRSA coverage. MRSA screen positive for Staph Aureus.
-ENT consulted.input appreciated. Patient with cerumen in ears bilaterally left> right. Start Debrox drops
-Pain medication with Low-dose Tylenol 325mg, Toradol IV.
# Known thyroid masses
-Outpatient thyroid ultrasound
# Transaminitis
-Elevated AST/ALT level on presentation
-Now trending now
-Monitor LFTS
Psychiatric history
-Continue Seroquel, BuSpar, Vistaril
#History of opiate use
#Type 2 diabetes
-Continue metformin
-Continue Home Lantus 14 units
Full code
DVT prophylaxis�heparin
Regular diet
Anticipated Discharge: 24 - 48 hours
Subjective/Interval History
-
Date of Service: August 23, 2024
Objective Data
-
Labs:
Laboratory Results
08/23/24
06:34
WBC 3.9 L
Hgb 11.4 L
Hct 31.6 L
Plt Count 214
Sodium Pending
Potassium Pending
Chloride Pending
Carbon Dioxide Pending
BUN Pending
Creatinine Pending
Glucose Pending
Calcium Pending
Vital Signs:
Vital Signs
Temp Pulse Resp BP Pulse Ox
98.1 F 72 14 147/88 98
08/22/24 23:54 08/22/24 23:54 08/22/24 23:54 08/22/24 23:54 08/22/24 23:54
I&O
08/22/24 08/23/24 08/24/24
06:59 06:59 06:59
Intake Total 1120 / 1120 1150 / 1150
Balance 1120 / 1120 1150 / 1150
Review of Systems
-
All other systems: Reviewed and negative (except as documented. )
Physical Exam
-
General: No Apparent Distress
HEENT: Other (painful left neck with warmth and pain down left neck)
Respiratory: Clear to Auscultation
Cardiac: Regular Rhythm and S1/S2
GI: Soft, Nontender, Nondistended and Normal Bowel Sounds
Musculoskeletal: No Cyanosis and No Edema
Neuro: AO x 3
Psych: Calm
[2024-08-23] MEDS: GLUCOPHAGE 500 MG PO ×2 (07:34→17:36)
[2024-08-23] MEDS: SUBUTEX 16 MG SL (07:34)
[2024-08-23] MEDS: SEROQUEL 50 MG PO ×2 (07:34→21:00)
[2024-08-23] MEDS: ASPIR LOW (ENTERIC COATED) 81 MG PO (07:34)
[2024-08-23] MEDS: BUSPAR 10 MG PO ×3 (07:34→21:01)
[2024-08-23] MEDS: DEBROX EAR DROPS 1 DROP OTIC ×2 (07:36→21:00)
[2024-08-23] MEDS: HEPARIN 5000 UNITS SC ×2 (07:36→21:00)
[2024-08-23 07:42] LABS: Glucose - Point of Care 124 mg/dl (70-99)
[2024-08-23] MEDS: NOVOLOG FLEXPEN-LOW RESISTANCE SC ×2 (07:42→11:55)
[2024-08-23 07:49] LABS: Blood Urea Nitrogen 12 mg/dl (9-20); Calcium 9.1 mg/dl (8.4-10.2); Carbon Dioxide 30 mmol/L (22-30); Chloride 104 mmol/L (98-107); Estimated Creatinine Clearance > 125 ml/min; Glucose 120 mg/dl (70-99); Potassium 4.6 mmol/L (3.5-5.1); Sodium 142 mmol/L (135-145); eGFR > 60.00
[2024-08-23 11:34] LABS: Glucose - Point of Care 137 mg/dl (70-99)
--- NOTE | 2024-08-23 12:10 | W.PN.ID1 ---
Date of Service
Date of Service: August 23, 2024
Today's Communication
Can transition vancomycin (d4) to doxycycline 100mg po bid through 08/29/24.
Assessment / Plan
Right posterior neck cellulitis
MRSA colonization
Hx DM (uncontrolled; A1c = 8.0)
Recommendations:
Blood cx's neg.
ENT evaluation - no evidence for an abscess or other pharyngitis or tonsillitis.
Cellulitis improving.
Can transition vancomycin (d4) to doxycycline 100mg po bid through 08/29/24.
Continue K-pad to the left neck area.
����������������������������������������������������������
Chief Complaint
-: Cellulitis
Subjective / Review of Systems
left neck pain not as diffuse
Vital Signs / Physical Exam
Vital Signs
Vital Signs
Temp Pulse Resp BP Pulse Ox
97.9 F 71 16 127/86 98
08/23/24 07:00 08/23/24 07:00 08/23/24 07:00 08/23/24 07:00 08/23/24 07:00
Physical Exam
Constitutional: No Acute Distress and Comfortable
Head: Other (Left neck: tender, mild erythema and induration along upper SCM )
Objective Data
Lab Data
Lab Results
08/23/24 06:34
08/23/24 06:34
Estimated Creat Clear > 125 ml/min 08/23/24 06:34
Lactic Acid 1.1 mmol/L (0.7-2.0) 08/20/24 13:30
Total Bilirubin 0.4 mg/dl (0.2-1.3) 08/22/24 11:18
AST 51 U/L (17-59) 08/22/24 11:18
ALT 54 U/L (0-50) H 08/22/24 11:18
Alkaline Phosphatase 50 U/L (38-126) 08/22/24 11:18
Most recent labs reviewed.
Micro Results:
08/20/24 16:37 Blood Culture - Preliminary
Blood/Venous No Growth in 48 hours- Final report to follow
08/20/24 16:37 Blood Culture - Preliminary
Blood/Venous No Growth in 48 hours- Final report to follow
08/20/24 20:35 MRSA Screen - Final
Nose Staph aureus MRSA
Imaging:
08/20/2024 CT neck with IV contrast: Left posterior neck cellulitis noted with findings extending from the periauricular soft tissues to the left supraclavicular soft tissues involving predominantly the subcutaneous fat associated with thickening of
the superficial investing fascia, mild inflammatory changes in the posterior triangle of the left neck and mild/borderline adenopathy.
--- NOTE | 2024-08-23 13:28 | PHA.VAN.FU ---
Vancomycin Assessment / Plan
- Assessment
Renal Function: Stable
In the past 24 hrs, patient has been: Afebrile
- Dosing Plan
Continue: Vanc 1500mg Q12H
- Monitoring Plan
No level(s) ordered at this time: consider levels in next few days if not changed to PO antibiotics
- Follow Up
Pharmacy will continue to follow.
Vancomycin Follow UP
- -
Patient Age: 39
Patient Sex: Male
Vancomycin Day #: 3
Indication: Skin And Soft Tissue
Requesting Provider: Dr. Ayala
Pertinent Antimicrobial Allergies:
NKDA
Height / Weight:
Height 6 ft
Actual Weight 102.625 kg
Pertinent Past Medical History: BMI ~31, DM 2
- Vital Signs / Lab Results
Temp Pulse Resp BP Pulse Ox
97.9 F 71 16 127/86 98
08/23/24 07:00 08/23/24 07:00 08/23/24 07:00 08/23/24 07:00 08/23/24 07:00
Lab Results - Hematology
08/20/24 08/21/24 08/22/24
13:30 08:49 11:18
WBC 7.2 5.1 3.8 L
08/23/24
06:34
WBC 3.9 L
Lab Results - Chemistry
08/20/24 08/21/24 08/22/24
13:30 08:49 11:18
BUN 7 L 10 10
Creatinine 0.6 L 0.7 0.7
Estimated Creat Clear > 125 > 125
Albumin 4.5 3.8 3.7
08/23/24
06:34
BUN 12
Creatinine 0.7
Estimated Creat Clear > 125
Albumin
08/20/24
13:30
Lactic Acid 1.1
Microbiology Results
08/20/24 16:37 Blood Culture - Preliminary
Blood/Venous No Growth in 48 hours- Final report to follow
08/20/24 16:37 Blood Culture - Preliminary
Blood/Venous No Growth in 48 hours- Final report to follow
08/20/24 20:35 MRSA Screen - Final
Nose Staph aureus MRSA
[2024-08-23 15:00] VITALS: BP 127/78
[2024-08-23 16:54] LABS: Glucose - Point of Care 183 mg/dl (70-99)
[2024-08-23] MEDS: NOVOLOG FLEXPEN-LOW RESISTANCE 1 UNITS SC (17:34)
[2024-08-23] MEDS: ATARAX 50 MG PO (21:01)
[2024-08-23 21:09] LABS: Glucose - Point of Care 191 mg/dl (70-99)
[2024-08-23] MEDS: LANTUS 0.14 UNITS SC (21:10)
[2024-08-23 23:20] VITALS: BP 120/81
[2024-08-24] MEDS: VANCOCIN 300 ML IV (05:49)
[2024-08-24] MEDS: VANCOCIN 300 MG IV (05:49)
[2024-08-24] MEDS: GLUCOPHAGE 500 MG PO (05:49)
[2024-08-24 07:20] VITALS: BP 134/82
[2024-08-24] MEDS: HEPARIN 5000 UNITS SC (07:36)
[2024-08-24] MEDS: ASPIR LOW (ENTERIC COATED) 81 MG PO (07:37)
[2024-08-24] MEDS: SUBUTEX 16 MG SL (07:37)
[2024-08-24] MEDS: SEROQUEL 50 MG PO (07:37)
[2024-08-24] MEDS: BUSPAR 10 MG PO (07:37)
[2024-08-24] MEDS: DEBROX EAR DROPS 1 DROP OTIC (07:40)
[2024-08-24 07:44] LABS: Glucose - Point of Care 135 mg/dl (70-99)
[2024-08-24] MEDS: NOVOLOG FLEXPEN-LOW RESISTANCE SC ×2 (07:44→13:16)
[2024-08-24 10:04] LABS: Hematocrit 32.9 % (39.0-52.0); Hemoglobin 11.7 g/dL (13.0-18.0); Mean Corp Hgb Conc. 35.6 g/dL (33.0-37.0); Mean Corpuscular Hgb 29.5 pg (27.0-31.0); Mean Corpuscular Volume 83.1 fL (80.0-94.0); Mean Platelet Volume 10.1 fL (7.4-10.4); Platelet Count 250 10^3/uL (130-400); Red Blood Cell Count 3.96 10^6/uL (4.70-6.10); Red Cell Dist. Width 12.1 % (11.5-14.5); White Blood Cell Count 3.8 10^3/uL (4.8-10.8)
[2024-08-24 10:29] LABS: ALT (SGPT) 59 U/L (0-50); AST (SGOT) 59 U/L (17-59); Albumin 3.7 g/dl (3.5-5.0); Alkaline Phosphatase 55 U/L (38-126); Blood Urea Nitrogen 10 mg/dl (9-20); Calcium 8.9 mg/dl (8.4-10.2); Carbon Dioxide 28 mmol/L (22-30); Chloride 103 mmol/L (98-107); Estimated Creatinine Clearance > 125 ml/min; Glucose 162 mg/dl (70-99); Sodium 143 mmol/L (135-145); Total Bilirubin 0.3 mg/dl (0.2-1.3); Total Protein 6.3 g/dl (6.3-8.2); eGFR > 60.00
--- NOTE | 2024-08-24 12:00 | W.PN.HOSP.TC ---
Today's Communication/Plan
-
d/c
Assessment / Plan
Assessment / Plan
pt is a 39 year old male
Posterior neck cellulitis may be related to uncontrolled DM--had right sided ~1 week ago resolved with amoxicillin--CT scan on admission reviewed c/w cellulitis--blood cultures negative, MRSA screen positive--vanco to doxy per ID--apprec ID/ENT
input--ok for d/c
Known thyroid masses--Outpatient thyroid ultrasound
Transaminitis--Continue to monitor
Psychiatric history--Continue Seroquel, BuSpar, Vistaril
History of opiate use/Recent marijuana use-- no signs of withdrawal--pt states he has not used drugs since incarceration
Type 2 diabetes--Continue metformin--Continue Lantus 14 units--HGB A1C 8
Full code
DVT prophylaxis�heparin
Anticipated Discharge: Today
Subjective/Interval History
-
Date of Service: August 24, 2024
pt ready for d/c
Objective Data
-
Labs:
Laboratory Results
08/24/24
08:52
WBC 3.8 L
Hgb 11.7 L
Hct 32.9 L
Plt Count 250
Sodium 143
Potassium 4.0
Chloride 103
Carbon Dioxide 28
BUN 10
Creatinine 0.7
Glucose 162 H
Calcium 8.9
Total Bilirubin 0.3
AST 59
ALT 59 H
Alkaline Phosphatase 55
Vital Signs:
max temp for 24 hours
08/23/24
23:20
Temp 98.1 F
Vital Signs
Temp Pulse Resp BP Pulse Ox
97.9 F 65 16 134/82 97
08/24/24 07:20 08/24/24 07:20 08/24/24 07:20 08/24/24 07:20 08/24/24 07:20
I&O
08/23/24 08/24/24 08/25/24
06:59 06:59 06:59
Intake Total 1150 / 1150 2410 / 2410 240 / 240
Balance 1150 / 1150 2410 / 2410 240 / 240
Review of Systems
-
All other systems: Reviewed and negative
Physical Exam
-
General: Well Developed, Well Nourished and No Apparent Distress
HEENT: Normocephalic, Atraumatic and Other (posterior cervical lymph node director of [employer] on left neck)
Respiratory: Clear to Auscultation; Negative Wheezes or Rhonchi
Cardiac: Regular Rhythm and S1/S2; Negative Murmur
GI: Soft, Nontender, Nondistended and Normal Bowel Sounds
Musculoskeletal: No Clubbing, No Cyanosis and No Edema
Neuro: Awake
Psych: Calm
[2024-08-24 12:09] LABS: Glucose - Point of Care 167 mg/dl (70-99)
--- NOTE | 2024-08-24 16:40 | CM ---
Patient from [facility].
Spoke with [facility] Nurse; they are able to accept the patient back today. The ph for report [phone], fax [phone].
Plan [facility] today.
--- NOTE | 2024-08-25 07:46 | W.DCSUMMARY ---
Discharge Summary
Discharge Data
Date of Admission: 08/20/24
Date of Discharge: 08/24/24
-
Pending Results: No
Hospital Course
Primary care physician : [facility]
Principal Discharge diagnosis : Posterior neck cellulitis related to uncontrolled type 2 diabetes.
Chronic Discharge diagnosis : Known thyroid masses, psychiatric history, history of opioid use with recent marijuana use, type 2 diabetes mellitus uncontrolled
Hospital Course : Patient was a 39-year-old male who [facility]. He has a history of diabetes and prior IV drug use and presented with a left-sided neck swelling for 4 days. He stated initially he had swelling of his right neck 2
weeks prior to this admission with some hearing impairment in the right ear and was treated with amoxicillin with improvement. He now stated that his left neck is swollen and he has muffled hearing in that ear. He stated he used IV drugs many
years prior and marijuana 2 months ago before he was imprisoned. Patient was admitted.
Problem #1: Posterior neck cellulitis related to uncontrolled type 2 diabetes mellitus. Patient was admitted and started on IV vancomycin and Zosyn. Infectious disease was consulted and Zosyn was stopped. Vancomycin was continued. CAT scan done
in the emergency department as listed below which showed neck cellulitis. Patient was seen in consultation by ENT and was found to have wax in bilateral ears and was given Debrox. He was then instructed to flush it out in the shower. There is no
evidence of tonsillitis. Patient continued to improve. There was no redness found and he did have tender cervical lymph node chains in the posterior neck. He was transitioned to oral doxycycline after his MRSA screen came back positive. Blood
cultures were negative.
Problem #2: All other medical issues. These include Known thyroid masses, psychiatric history, history of opioid use with recent marijuana use, type 2 diabetes mellitus uncontrolled. Patient's hemoglobin A1c was 8.0. He was continued on his
metformin and Lantus. All other medical issues were stable during his hospitalization and medications were continued as able.
Patient is stable for [facility] back to the [facility] at this time. If there are any questions regarding this dictation or his hospital stay, please not hesitate to call. Our office number is [phone].
Important imaging findings :
NECK CT SCAN IMPRESSION:
1). There is left posterior neck cellulitis extending from the periauricular soft tissues to the left supraclavicular soft tissues involving predominantly the subcutaneous fat associated with thickening of the superficial investing fascia, mild
inflammatory changes in the posterior triangle of the left neck and mild/borderline adenopathy
2). The faucial tonsils are enlarged measuring 18 mm in diameter bilaterally suggesting possible tonsillitis
3). 4.4 cm benign versus malignant thyroid masses which, if clinically indicated, could be best further evaluated and followed with nonemergent thyroid ultrasound
Discharge Plan
-
Patient Disposition: Group Home
Discharge Diagnosis/Procedures: Posterior neck cellulitis may be related to uncontrolled DM
Known thyroid masses
Transaminitis
T2DM
Condition: Fair
Diet: As tolerated
Activity: As tolerated
Driving Restrictions: No driving
Bathing Restrictions: None
Referrals:
[facility] [Family Provider] - in less than 1 week
Prescriptions:
New
doxycycline monohydrate 100 mg capsule
100 mg PO BID 5 Days Qty: 10 0RF
Rx Instructions:
take through 08/29/24
Continued
metformin 500 mg Tablet
500 mg PO BID@0600,1700 Qty: 0 0RF
insulin glargine [Lantus U-100 Insulin] 100 unit/mL Solution
14 unit SC DAILY@2100 Qty: 0 0RF
hydroxyzine pamoate 50 mg Capsule
50 mg PO HS Qty: 0 0RF
aspirin 81 mg Tablet,Delayed Release (Dr/Ec)
81 mg PO DAILY Qty: 0 0RF
buspirone 10 mg Tablet
10 mg PO TID Qty: 0 0RF
quetiapine 50 mg Tablet
50 mg PO BID Qty: 0 0RF
buprenorphine HCl 8 mg Tablet, Sublingual
16 mg SUBLINGUAL DAILY Qty: 0 0RF
Discontinued
amoxicillin 500 mg Capsule
500 mg PO TID
Discharge Orders:
Discharge Patient (As Directed); Ordered 08/24/24
Ordered By: Farnaz Malik
Discharge Date and Time
Discharge Date/Time: 08/24/24 13:24
Print Language: ALBANIAN
== END 2024-08-24 13:24 | DRG 638 ==
LOC: 3 WEST ACU 16:59
PROVIDERS: Physician Assistant; Student in an Organized Health Care Education/Training Program; ADMITTING PHYSICIAN Hospitalist; ATTENDING PHYSICIAN Internal Medicine; CONSULT PHYSICIAN Otolaryngology; EMERGENCY PHYSICIAN Emergency Medicine; OTHER PHYSICIAN Internal Medicine Infectious Disease
DX: E11.628 Type 2 diabetes mellitus with other skin complications (principal); L03.221 Cellulitis of neck; E11.65 Type 2 diabetes mellitus with hyperglycemia; E04.1 Nontoxic single thyroid nodule; F12.90 Cannabis use, unspecified, uncomplicated; R74.01 Elevation of levels of liver transaminase levels; H61.23 Impacted cerumen, bilateral; R59.9 Enlarged lymph nodes, unspecified; F19.90 Other psychoactive substance use, unspecified, uncomplicated; Z79.4 Long term (current) use of insulin; Z79.82 Long term (current) use of aspirin; Z79.84 Long term (current) use of oral hypoglycemic drugs; Z87.891 Personal history of nicotine dependence; Z22.322 Carrier or suspected carrier of Methicillin resistant Staphylococcus aureus
CPT/HCPCS: 70491; 80048; 80053; 82962; 83036; 83605; 83735; 85025; 85027; 87040; 87070; 87147; 96374; 99285; Q9967